=== PATIENT | female | born 1985 | race Caucasian/White ===

== ENCOUNTER 2020-01-20 06:43 | Emergency (ER) | payer MEDICAID ==
[~2020-01-20] VITALS: Ht 157.5 cm; Wt 54.4 kg
[2020-01-20 07:13] VITALS: BP_SYST 105
--- NOTE | 2020-01-20 07:25 | NUR ---
Patient triaged and placed in waiting room. VSS and patient appears in no acute distress at this time. Awaiting available bed, and MD notified of need for MSE.
--- NOTE | 2020-01-20 07:50 | NUR ---
Patient to ER bed 02 to gown for evaluation. Side rails up.
--- NOTE | 2020-01-20 07:52 | NUR ---
Patient arrived in the ED c/o headaches, light sensitivity, dizziness and blurry vision that started today. Patient denied any chest pain or shortness of breath. Denied any fevers, chills, nausea, or vomiting. Patient is alert and oriented x4, respirations even and unlabored, speaking in full sentences, ambulating with a steady gait. VSS, pain level 10/10. Informed of approximate wait time. Instructed to notify ED staff for any changes in condition or worsening of symptoms. Patient verbalized understanding.
--- NOTE | 2020-01-20 07:56 | NUR ---
Patient ambulated to the bathroom with a steady gait. Urine specimen collected and dipped.
--- NOTE | 2020-01-20 07:58 | NUR ---
ER Dr. Rosado at bedside examining patient.
--- NOTE | 2020-01-20 08:15 | NUR ---
Patient is taken to CT in stable condition.
--- NOTE | 2020-01-20 08:35 | NUR ---
Patient is back from CT in stable condition.
[2020-01-20] MEDS ORDERED: PROCHLORPERAZINE EDISYLATE 10 MG/2 ML VIAL IM ONE (08:45)
[2020-01-20] MEDS ORDERED: KETOROLAC TROMETHAMINE 60 MG/2 ML VIAL IM ONE (08:45)
[2020-01-20 10:00] LABS: BARBITURATE, URINE NEGATIVE (NEG <=200); BENZODIAZEPINE, URINE NEGATIVE (NEG <=150); CANNABINOID, URINE NEGATIVE (NEG <=50); COCAINE, URINE NEGATIVE (NEG <=150); METHAMPHETAMINES SCREEN,URINE NEGATIVE (NEG <=500); OPIATE, URINE NEGATIVE (NEG <=100); PHENCYCLIDINE SCREEN,URINE NEGATIVE (NEG <=25); UR TRICYCLIC ANTIDEPRESSANTS NEGATIVE (NEG <=300); URINE AMPHETAMINE NEGATIVE (NEG <=500); URINE METHADONE NEGATIVE (NEG <=200); URINE OXYCODONE SCREEN NEGATIVE (NEG <=100); URINE PROPOXYPHENE SCREEN NEGATIVE (NEG <=300)
--- NOTE | 2020-01-20 10:22 | NUR ---
Patient is taken to MRI in stable condition.
--- NOTE | 2020-01-20 12:01 | NUR ---
ER Dr. Rosado at bedside re-examining patient and giving discharge instructions.
--- NOTE | 2020-01-20 12:05 | NUR ---
Patient given written and verbal discharge instructions and verbalizes understanding. ER MD discussed with patient the results and treatment provided. Patient in stable condition. ID arm band removed. Rx of TRamadol given. Patient educated on pain management and to follow up with PMD. Pain Scale 0/10. Opportunity for questions provided and answered. Medication side effect fact sheet provided.
[2020-01-20 12:07] VITALS: BP_SYST 126
== END 2020-01-20 12:07 | disposition home or self-care (01) ==
LOC: SED 06:43
DX: G44.209 Tension-type headache, unspecified, not intractable (principal)
CPT/HCPCS: 70450; 70551; 80307; 81002; 81025; 96372; 99285; J0780; J1885